=== PATIENT | male | born 1945 | race Caucasian/White ===

== ENCOUNTER → 2024-01-22 09:59 | Outpatient (REF) | payer OTHER, SELFPAY | LOC: DHCBS MAIN 09:59 | PROVIDERS: ATTENDING PHYSICIAN Nuclear Medicine Nuclear Cardiology; FAMILY PHYSICIAN Family Medicine | DX: I63.89 Other cerebral infarction (principal); I48.19 Other persistent atrial fibrillation; I10 Essential (primary) hypertension | CPT/HCPCS: 93306 ==

== ENCOUNTER 2025-03-01 01:59 | Emergency (ER) | payer OTHER, SELFPAY ==
[2025-03-01 02:04] VITALS: BP 129/69
[2025-03-01 02:24] VITALS: BP 129/69; BMI 24.4
--- NOTE | 2025-03-01 02:43 | ED.GENMED ---
History of Present Illness
<Magdi Radford MD, Resident - Last Filed: 03/01/25 06:34>
General
Chief Complaint: Change in Mental Status
Time Seen by Provider: 03/01/25 02:31
History of Present Illness
History of Present Illness:
79-year-old male presents to the ER due to change in mental status. Patient states he did not fall, he denies hitting his head. Unable to obtain full history from patient. All he remembers was his called EMS. I Attempted to contact , no
response. Left VM.
Past History
<Magdi Radford MD, Resident - Last Filed: 03/01/25 06:34>
Past History
ED Past Medical History: Arrthythmia (Afib), CVA, HTN, Hypercholesterolemia and Other (parkinsons dementia, kidney stones)
ED Past Surgical History: Other (cataract)
Social History
Tobacco: Non-smoker
Alcohol: None
Drug: None
Personal:
Living: with family
Employment: Not employed
Family History
Family History: Other
Phy Exam
<Magdi Radford MD, Resident - Last Filed: 03/01/25 06:34>
General Physical Exam
General Presentation: no apparent distress
Cardiovascular Exam
Cardiovascular Exam: irregularly irregular
Pulmonary Exam
Pulmonary Exam: no respiratory distress
Breath Sounds: Rhonchi: generalized
Gastrointestinal Exam
Gastrointestinal Exam: normal bowel sounds, non tender, soft and non distended
Course
<Magdi Radford MD, Resident - Last Filed: 03/01/25 06:34>
Orders/Labs/Results
Orders:
Orders
03/01/25 02:39
Electrocardiogram (*1) Urgent
Reason for Study: Tachycardia
EKG- Treatment ONCE
03/01/25 02:41
CT Head W/o Iv Contrast Urgent
Comment:
Reason For Exam: change in mental status
CR Chest - 2 Views Urgent
Comment:
Reason For Exam: cough
03/01/25 02:48
COVID-19 Antigen Urgent
Source: Nasal Swab
Complete Blood Count/With Diff Urgent
Comprehensive Metabolic Panel Urgent
Magnesium Urgent
Influenza A+B Rapid Molecular Urgent
REBA Source: Nasal Swab
Specimen Description:
03/01/25 02:53
TSH Reflex To Free T4 Urgent
03/01/25 03:59
0.9% Sodium Chloride 250 ml [Nss] 250 ml IV BOLUS
03/01/25 05:22
Urinalysis Stat
Date Specimen was Collected: 03/01/25
Time Specimen was Collected: 05:18
Urine Microscopic Stat
Date Specimen was Collected: 03/01/25
Time Specimen was Collected: 05:18
Abnormal Lab Results
03/01/25 03/01/25
02:48 05:22
WBC 13.6 H 10^3/uL
(4.8-10.8)
RBC 4.42 L 10^6/uL
(4.70-6.10)
MCV 95.5 H fL
(80.0-94.0)
MCH 32.6 H pg
(27.0-31.0)
RDW 14.6 H %
(11.5-14.5)
MPV 10.5 H fL
(7.4-10.4)
Abs Immat Gran (auto) 0.1 H 10^3/uL
(0-0.05)
Absolute Neuts (auto) 11.2 H 10^3/uL
(1.4-6.5)
Absolute Monos (auto) 0.9 H 10^3/uL
(0.1-0.6)
Neutrophils % 82.1 H %
(42.2-75.2)
Lymphocytes % 9.5 L %
(20.5-51.1)
BUN 29 H mg/dl
(9-20)
Glucose 275 H mg/dl
(70-99)
Magnesium 1.4 L mg/dl
(1.6-2.3)
Urine Albumin 2+ A
(Neg - Trace)
03/01/25 02:48
03/01/25 02:48
Vital Signs
Initial and Last Documented VS:
Initial Vital Signs
Pulse Resp Pulse Ox
114 13 98
03/01/25 02:03 03/01/25 02:03 03/01/25 02:03
Last Documented Vital Signs
Temp Pulse Resp BP Pulse Ox
98.3 F 105 19 101/67 96
03/01/25 02:04 03/01/25 04:30 03/01/25 04:30 03/01/25 04:00 03/01/25 04:30
<Laura Betts, DO - Last Filed: 03/01/25 06:26>
Orders/Labs/Results
Orders:
Orders
03/01/25 02:39
Electrocardiogram (*1) Urgent
Reason for Study: Tachycardia
EKG- Treatment ONCE
03/01/25 02:41
CT Head W/o Iv Contrast Urgent
Comment:
Reason For Exam: change in mental status
CR Chest - 2 Views Urgent
Comment:
Reason For Exam: cough
03/01/25 02:48
COVID-19 Antigen Urgent
Source: Nasal Swab
Complete Blood Count/With Diff Urgent
Comprehensive Metabolic Panel Urgent
Magnesium Urgent
Influenza A+B Rapid Molecular Urgent
REBA Source: Nasal Swab
Specimen Description:
03/01/25 02:53
TSH Reflex To Free T4 Urgent
03/01/25 03:59
0.9% Sodium Chloride 250 ml [Nss] 250 ml IV BOLUS
03/01/25 05:22
Urinalysis Stat
Date Specimen was Collected: 03/01/25
Time Specimen was Collected: 05:18
Urine Microscopic Stat
Date Specimen was Collected: 03/01/25
Time Specimen was Collected: 05:18
Abnormal Lab Results
03/01/25 03/01/25
02:48 05:22
WBC 13.6 H 10^3/uL
(4.8-10.8)
RBC 4.42 L 10^6/uL
(4.70-6.10)
MCV 95.5 H fL
(80.0-94.0)
MCH 32.6 H pg
(27.0-31.0)
RDW 14.6 H %
(11.5-14.5)
MPV 10.5 H fL
(7.4-10.4)
Abs Immat Gran (auto) 0.1 H 10^3/uL
(0-0.05)
Absolute Neuts (auto) 11.2 H 10^3/uL
(1.4-6.5)
Absolute Monos (auto) 0.9 H 10^3/uL
(0.1-0.6)
Neutrophils % 82.1 H %
(42.2-75.2)
Lymphocytes % 9.5 L %
(20.5-51.1)
BUN 29 H mg/dl
(9-20)
Glucose 275 H mg/dl
(70-99)
Magnesium 1.4 L mg/dl
(1.6-2.3)
Urine Albumin 2+ A
(Neg - Trace)
03/01/25 02:48
03/01/25 02:48
Vital Signs
Initial and Last Documented VS:
Initial Vital Signs
Pulse Resp Pulse Ox
114 13 98
03/01/25 02:03 03/01/25 02:03 03/01/25 02:03
Last Documented Vital Signs
Temp Pulse Resp BP Pulse Ox
98.3 F 105 19 101/67 96
03/01/25 02:04 03/01/25 04:30 03/01/25 04:30 03/01/25 04:00 03/01/25 04:30
<Magdi Radford MD, Resident - Last Filed: 03/01/25 06:34>
*Critical Care Note
Total Time (30-74mins, 75-104mins- exclusive of procedures): Not Applicable
ED Attending Note
<Magdi Radford MD, Resident - Last Filed: 03/01/25 06:34>
-
Portions of this chart may have been created with voice recognition software.� Occasional wrong word or��sound alike� substitutions may have occurred due to the inherent limitations of voice recognition software.
<Laura Betts DO - Last Filed: 03/01/25 06:26>
ED Attending Note
Patient seen and examined by attending physician: Yes
I performed a history and physical exam of patient and discussed management with resident, I reviewed resident's note and agree with documented findings and plan of care.: Yes
ED Attending Note:
This is an 79-year-old gentleman who resides at home with his . He has history of dementia, vascular related Parkinson's disease, several previous strokes, history of A-fib chronically maintained on Eliquis. Remote history of 1 previous
seizure several years ago. No recurrence.
Tonight, while sitting on a bench at the end of his bed getting ready for bed which states is normal, lengthy process. He was suddenly incontinent of stool while sitting on the bench and then seemed to be briefly poorly responsive but was able
to answer her questions, he was somewhat pale and mildly diaphoretic. Upon EMS arrival Accu-Chek was over 200, systolic blood pressure 105.
Prior to this event at 1:00 this morning he had been feeling well and at his baseline. He did not fall nor lose consciousness.
Since arrival to the ED he has had no recurrent bowel movements, no episodes of diarrhea, he denies pain, denies nausea.
No close contacts with similar symptoms.
79-year-old gentleman appears his stated age, awake and alert, oriented x 2. Easily conversant. Offers no complaints.
HEENT: Head is normocephalic, atraumatic. Oral mucosa is moist.
Heart is irregularly irregular.
Lungs are clear to auscultation. No respiratory distress.
Abdomen is soft without appreciable tenderness.
Concern for vasovagal episode, concern for gastroenteritis, concern for focal brief seizure, bradycardia arrhythmia. Other consideration is CVA.
Labs are pending as is CT.
Will plan for IV fluids and continue to observe for recurrent symptoms.
Discharge Plan
Departure
Patient Disposition: Home (Routine Discharge)
Date of Disposition: 03/01/25
Time of Disposition: 06:27
Patient with high blood pressure during this ER visit?: No
Discharge Problem:
Change in mental state
Instructions: Altered Mental Status (DC)
Referrals:
UNKNOWN - PT DOES,NOT KNOW [Unknown Provider] -
Interventions
Interventions:
*Risk Screen - Suicide Last Done: 03/01/25 02:04
*General Assessment Last Done: 03/01/25 02:04
*Neglect/Abuse Screening Last Done: 03/01/25 02:04
*ED- Fall Risk Assessment Last Done: 03/01/25 02:13
*ED COVID-19 Vaccine History Last Done: 03/01/25 02:13
ED- Pulmonary Assessment Last Done: 03/01/25 02:13
ED- Neurological Assessment Last Done: 03/01/25 02:13
ED- Cardiac Assessment Last Done: 03/01/25 02:13
Discharge Date and Time
Print Language: EGYPTIAN
[2025-03-01 03:00] VITALS: BP 103/64
[2025-03-01 03:03] LABS: % Basophils 0.1 % (0-2); % Immature Granulocytes 0.5 % (0-0.5); % Lymphocytes 9.5 % (20.5-51.1); % Monocytes 6.8 % (1.7-9.3); % Neutrophils 82.1 % (42.2-75.2); Absolute Eosinophils 0.1 10^3/uL (0-0.7); Absolute Immature Granulocytes 0.1 10^3/uL (0-0.05); Absolute Lymphocytes 1.3 10^3/uL (1.2-3.4); Absolute Monocytes 0.9 10^3/uL (0.1-0.6); Absolute Neutrophils 11.2 10^3/uL (1.4-6.5); Hematocrit 42.2 % (39.0-52.0); Hemoglobin 14.4 g/dL (13.0-18.0); Mean Corp Hgb Conc. 34.1 g/dL (33.0-37.0); Mean Corpuscular Hgb 32.6 pg (27.0-31.0); Mean Corpuscular Volume 95.5 fL (80.0-94.0); Mean Platelet Volume 10.5 fL (7.4-10.4); Nucleated Red Blood Cells % 0.1 % (-); Platelet Count 249 10^3/uL (130-400); Red Blood Cell Count 4.42 10^6/uL (4.70-6.10); Red Cell Dist. Width 14.6 % (11.5-14.5); White Blood Cell Count 13.6 10^3/uL (4.8-10.8)
[2025-03-01 03:11] LABS: ALT (SGPT) 22 U/L (0-50); AST (SGOT) 30 U/L (17-59); Albumin 4.3 g/dl (3.5-5.0); Alkaline Phosphatase 101 U/L (38-126); Blood Urea Nitrogen 29 mg/dl (9-20); Calcium 9.5 mg/dl (8.4-10.2); Carbon Dioxide 25 mmol/L (22-30); Chloride 103 mmol/L (98-107); Estimated Creatinine Clearance 47 ml/min; Glucose 275 mg/dl (70-99); Magnesium 1.4 mg/dl (1.6-2.3); Potassium 4.9 mmol/L (3.5-5.1); Sodium 140 mmol/L (135-145); Total Bilirubin 0.6 mg/dl (0.2-1.3); Total Protein 7.3 g/dl (6.3-8.2); eGFR 55.53
[2025-03-01 03:24] LABS: COVID-19 Antigen Negative (Negative)
[2025-03-01 03:57] LABS: TSH Reflex To Free T4 3.29 uIU/ml (0.47-4.68)
[2025-03-01 04:00] VITALS: BP 101/67
[2025-03-01] MEDS: NSS 250 IV (04:29)
[2025-03-01 05:00] VITALS: BP 115/53
[2025-03-01 05:41] LABS: Urine Albumin 2+ (Neg - Trace); Urine Bilirubin Negative (Negative); Urine Character Clear (Clear); Urine Color Yellow; Urine Glucose Negative (Negative); Urine Ketone Negative (Negative); Urine Leukocyte Negative (Negative); Urine Nitrite Negative (Negative); Urine Occult Blood Negative (Negative); Urine Urobilinogen Negative (Neg - 1+)
[2025-03-01 06:00] VITALS: BP 103/64
[2025-03-01 07:05] LABS: Urine Calcium Oxalate Crystals Present; Urine Red Blood Cell 0-2 /HPF (0-2); Urine White Cell 0-2 /HPF (0-5)
== END 2025-03-01 07:23 | disposition home or self-care (01) ==
LOC: EMR 01:59
PROVIDERS: Student in an Organized Health Care Education/Training Program; EMERGENCY PHYSICIAN Emergency Medicine; FAMILY PHYSICIAN Family Medicine
DX: R41.82 Altered mental status, unspecified (principal); E78.00 Pure hypercholesterolemia, unspecified; F02.80 Dementia in other diseases classified elsewhere, unspecified severity, without behavioral disturbance, psychotic disturbance, mood disturbance, and anxiety; G20.A1 Parkinson's disease without dyskinesia, without mention of fluctuations; I10 Essential (primary) hypertension; I48.91 Unspecified atrial fibrillation; Z86.73 Personal history of transient ischemic attack (TIA), and cerebral infarction without residual deficits; Z11.52 Encounter for screening for COVID-19
CPT/HCPCS: 99285; 96360; 70450; 71046; 80053; 81003; 81015; 83735; 84443; 85025; 87502; 87811; 93005